=== PATIENT | female | born 1995 | race Two or more races ===

== ENCOUNTER 2020-07-10 23:22 | Emergency (ER) | payer MEDICAID ==
[~2020-07-10] VITALS: Ht 165.1 cm; Wt 122.5 kg
--- NOTE | 2020-07-10 23:25 | NUR ---
BIBRA C/O SOB X1 DAY. UPON ASSESSMENT PT STATES "I THINK THIS IS MORE ANXIETY RELATED BECAUSE OF MY COVID RESULT". PT AAOX4 AND ABLE TO SPEAK IN FULL SENTENCES. BREATHING IS EVEN AND UNLABORED. VSS, 99% RA. PT ALSO COMPLAINS OF RT EYE REDNESS. PT WAS GIVEN A WARM BLANKET, HOOKED TO MONITOR AND POX. CALL LIGHT WITHIN REACH. WILL CONTINUE TO MONITOR.
[2020-07-10] MEDS ORDERED: ALBUTEROL FS 2.5 MG/0.5 ML VIAL.NEB ONE (23:45)
--- NOTE | 2020-07-10 23:55 | NUR ---
blood collected and sent to lab
[2020-07-11] MEDS ORDERED: ALBUTEROL FS 2.5 MG/0.5 ML VIAL.NEB NEB ONE
--- NOTE | 2020-07-11 00:01 | NUR ---
RT AT BEDSIDE FOR BREATHING TREATMENT.
[2020-07-11 00:02] LABS: BASOPHILS % (AUTO) 0.8 % (0.0-2.0); EOSINOPHILS % (AUTO) 2.7 % (0.0-6.0); HEMATOCRIT 50 % (33-45); HEMOGLOBIN 16.1 g/dL (11.5-14.8); LYMPHOCYTES # (AUTO) 1.5 /CMM (0.8-4.8); LYMPHOCYTES % (AUTO) 29.7 % (20.0-44.0); MEAN CORPUSCULAR HGB CONC 33 g/dl (31.0-36.0); MEAN CORPUSCULAR VOLUME 84 fL (82-100); MONOCYTES # (AUTO) 0.5 /CMM (0.1-1.30); MONOCYTES % (AUTO) 9.5 % (2.0-12.0); NEUTROPHILS # (AUTO) 2.9 /CMM (1.8-8.9); NEUTROPHILS % (AUTO) 57.3 % (43.0-81.0); PLATELET COUNT (AUTO) 281 /CMM (150-450)
--- NOTE | 2020-07-11 00:11 | NUR ---
RT called for neb tx. pt found in semi fowlers pos. saturation 97% on RA. no resp distress. pt states having sob due to concerns about covid. will reassess post tx.
[2020-07-11 00:24] LABS: ALBUMIN 3.4 g/dL (3.4-5.0); BILIRUBIN,TOTAL 0.2 mg/dL (0.2-1.0); CALCIUM, SERUM 9.2 mg/dL (8.5-10.1); CREATININE 0.7 mg/dL (0.6-1.3); POTASSIUM 4.4 mmol/L (3.5-5.1); TOTAL PROTEIN, SERUM 7.6 g/dL (6.4-8.2)
--- NOTE | 2020-07-11 00:24 | NUR ---
RT post tx, pt states breathing is much easier.
--- NOTE | 2020-07-11 01:38 | NUR ---
Patient discharged to home in stable condition. Written and verbal after care instructions given. Patient verbalizes understanding of instruction. IV removed. Catheter intact and site benign. Pressure and 4x4 applied to site. No bleeding noted.PT ambulatory with a steady gait
[2020-07-11 01:39] VITALS: BP 147/82
== END 2020-07-11 01:39 | disposition home or self-care (01) ==
LOC: ER 23:26
DX: U07.1 COVID-19 (principal); J45.909 Unspecified asthma, uncomplicated; E11.9 Type 2 diabetes mellitus without complications
CPT/HCPCS: 36415; 71045-TC; 80053-TC; 85025-TC